=== PATIENT | male | born 1985 | race Caucasian/White ===

== ENCOUNTER 2016-07-03 13:41 | Emergency (ER) | payer SELFPAY ==
[2016-07-03 13:54] VITALS: BP 131/85
--- NOTE | 2016-07-03 14:03 | UC ---
UC General HPI - HPI Summary HPI Summary: complaint of lump on his stomach noticed it 2 daysa go small area of redness and tiny bump since then it has become more swollen thinks it was a spider bite tried to pop it yesterday but had no success painful when his pants rub against denies fever or chills, abdominal pain hasn't taken any medications for pain - History of Current Complaint Chief Complaint: UCSkin Stated Complaint: SOFT TISSUE COMPLAINT Time Seen by Provider: 07/03/16 13:47 Hx Obtained From: Patient - Allergy/Home Medications Allergies/Adverse Reactions: Allergies Allergy/AdvReac Type Severity Reaction Status Date / Time No Known Allergies Allergy Verified 12/12/14 21:29 PMH/Surg Hx/FS Hx/Imm Hx Previously Healthy: Yes Endocrine History Of: Denies: Diabetes, Thyroid Disease Cardiovascular History Of: Denies: Cardiac Disorders, Hypertension, Pacemaker/ICD, Congestive Heart Failure Respiratory History Of: Denies: COPD, Asthma GI/ History Of: Denies: Gastroesophageal Reflux, Ulcer, Renal Disease Neurological History Of: Denies: CVA, Dementia, Seizures Other History Of: Negative For: Anticoagulant Therapy - Surgical History Surgical History: Yes Surgery Procedure, Year, and Place: appendecomy 2013 - Family History Known Family History: Negative: Cardiac Disease, Hypertension, Diabetes - Social History Occupation: Employed Full-time Alcohol Use: Occasionally Substance Use Type: None Smoking Status (MU): Never Smoked Tobacco - Immunization History Most Recent Influenza Vaccination: unknown Most Recent Tetanus Shot: unknown Most Recent Pneumonia Vaccination: unknown Review of Systems Constitutional: Negative Skin: Other - abscess Eyes: Negative ENT: Negative Respiratory: Negative Cardiovascular: Negative Gastrointestinal: Negative Genitourinary: Negative Motor: Negative Neurovascular: Negative Musculoskeletal: Negative Neurological: Negative Psychological: Negative All Other Systems Reviewed And Are Negative: Yes Physical Exam Triage Information Reviewed: Yes Appearance: Well-Appearing, No Pain Distress, Well-Nourished, Obese Vital Signs: Initial Vital Signs Temp 98.4 F 07/03/16 13:48 Pulse 78 07/03/16 13:48 Resp 18 07/03/16 13:48 BP 131/85 07/03/16 13:48 Pulse Ox 100 07/03/16 13:48 Vital Signs Reviewed: Yes Eyes: Positive: Conjunctiva Clear ENT: Positive: Pharynx normal, TMs normal. Negative: Nasal congestion Neck: Positive: No Lymphadenopathy Respiratory: Positive: Lungs clear, Normal breath sounds, No respiratory distress Cardiovascular: Positive: RRR, No Murmur Abdomen Description: Positive: Nontender, Soft Bowel Sounds: Positive: Present Musculoskeletal: Positive: No Edema Psychological Exam: Normal Skin: Positive: Other - abscess RLQ approx 2x2cm approx 2cm of induration beneath , area of erythema approx 4x3 cm surrounding abscess Procedures - Incision and Drainage Site: RLQ- small amount of exudate expressd pt tolerated well Anesthesia: Lidocaine Instrument(s): Scalpel Packing: Other - sterile dressing- Course/Dx - Course Course Of Treatment: exam completed. abscess most likely caused by spider bite. I&D completed, culture sent, will give tetanus andcover for MRSA with bactrim - Differential Dx - Multi-Symptom Differential Diagnoses: Other - aabscess, cellulitis Provider Diagnoses: abscess RLQ, cellulitis RLQ Discharge - Discharge Plan Condition: Stable Disposition: HOME Prescriptions: Sulfamethox/Trimethoprim DS* [Bactrim DS 800/160 TAB*] 1 tab PO BID #14 tab Patient Education Materials: Cellulitis (ED), Abscess (ED) Referrals: Gerson Oh MD [Primary Care Provider] - Additional Instructions: Please take antibiotic as directed. Increase fluids and rest Take acetaminophen for fever or pain Please review your discharge instructions. If your symptoms do not improve please call your primary care provider or return to urgent care.ABSCESS What is an Abscess? An abscess is a collection of pus caused by an infection. It may be a simple infected hair follicle, a boil, or an infection caused by a puncture wound, an untreated wound, or an abrasion. The abscess may come to a head and rupture. Sometimes the abscess may need to be cut open and drained to remove the pus and tissue. Symptoms May Include: Skin redness over the infected area Tight, glossy, "stretched" appearance of the skin Pain or tenderness of the area The affected area may be warm or hot to touch Thin red line (along a vein) from the abscess toward the heart Fever Treatment Recommendations: Apply warm wet compresses to the infected area several times a day. If a dressing was applied, keep it clean and dry. The healthcare provider may have prescribed an antibiotic medicine. The medicine should be taken until it is completely gone, even if you are feeling better. If you stop taking the medicine early, the infection may not be completely gone, and the medication may not work the next time. You should have the abscess rechecked by your healthcare provider as instructed by the emergency department healthcare provider. If a drain was put in the abscess, keep the dressing clean and dry. You may need to change the dressing if it becomes soaked with drainage. It is very important to follow-up with your own healthcare provider as directed. The drain should be removed and the wound rechecked in 2 to 3 days or as directed. Call Your Doctor or Return Here IF: You are not improving, or the abscess looks like it is getting worse. The wound turns red and starts to swell again, or there are red streaks coming from the wound. You develop a fever that does not go down when you take fever medicine such as acetaminophen (Tylenol). The wound continues to leak pus after the drain is removed. You have any new symptoms that worry you.
[2016-07-03] MEDS ORDERED: Tetan/Diph/Pertus SYR(Tdap)* 0.5 ML SYR(BOOSTRIX) use SYR IM ONE (14:10)
[2016-07-03] MEDS ORDERED: Lidocaine 2% W/EPI 1:100,000* 20 ML MDV ONE (14:13)
== END 2016-07-03 14:54 | disposition home or self-care (01) ==
LOC: UCEAST 13:41
DX: L02.211 Cutaneous abscess of abdominal wall (principal); Z23 Encounter for immunization
CPT/HCPCS: 10060; 87070; 87077; 87186; 87205; 87640; 87641; 90715; 99212; G0463

== ENCOUNTER 2016-08-07 17:47 | Emergency (ER) | payer OTHER ==
[2016-08-07] MEDS ORDERED: Ondansetron INJ* 2 MG/ML VIAL IV ONE (20:56)
[2016-08-07] MEDS ORDERED: Morphine INJ* 4 MG/ML 1 ML CARPUJECT IV ONE (20:56)
[2016-08-07] MEDS ORDERED: Ketorolac INJ* 30 MG/ML 1 ML VIAL IM ONE (20:56)
[2016-08-07] MEDS ORDERED: NS 0.9% 1000 ML* 1,000 ML IV ONE (20:56)
[2016-08-07 21:37] LABS: Albumin 4.4 g/dL (3.2-5.2); BUN/Creatinine Ratio 18.1 (8-20); Calcium 9.4 mg/dL (8.6-10.3); EGFR Non-African American 94.9 (>60); Globulin 2.8 g/dL (2-4); Total Bilirubin 0.6 mg/dL (0.2-1.0); Total Protein 7.2 g/dL (6.4-8.9)
[2016-08-07 21:39] LABS: Troponin I 0.01 ng/mL (<0.04)
[2016-08-07 21:40] LABS: Hematocrit 47 % (42-52); Hemoglobin 15.7 g/dl (14.0-18.0); Mean Corpuscular HGB Conc 33 g/dl (31-36); Mean Corpuscular Hemoglobin 29 pg (27-31); Mean Corpuscular Volume 88 fL (80-94); Mean Platelet Volume 10 um3 (7.4-10.4); Red Blood Count 5.37 10^6/ul (4.0-5.4); Red Cell Distribution Width 14 % (10.5-15); White Blood Count 11.9 10^3/ul (3.5-10.8)
[2016-08-07] MEDS ORDERED: HYDROmorphone INJ* 1 MG/ML CARPUJECT SYRINGE IV SLOW PU ONE (21:49)
--- NOTE | 2016-08-07 21:51 | RAD ---
Indication: Left lower abdomen pain. 2 views of the chest demonstrates no mediastinal shift. Heart is of normal size and configuration. Lung brown are clear. When compared to previous exam of June 28, 2014 no significant change is noted. IMPRESSION: No active cardiopulmonary disease is noted.
[2016-08-07] MEDS ORDERED: HYDROmorphone INJ* 1 MG/ML CARPUJECT SYRINGE ONE (21:52)
[2016-08-07 22:10] LABS: Urine Bilirubin Negative (Negative); Urine Glucose Negative (Negative); Urine Nitrite Negative (Negative)
--- NOTE | 2016-08-07 22:26 | RAD ---
Indication: Left flank pain. CT of the abdomen and pelvis was performed without oral or IV contrast administration. Coronal and and sagittal reconstructed images were obtained. The lung bases demonstrate no pleural fluid, nodules or masses. Heart is of normal size without evidence of pericardial effusion. Liver is normal in size. No focal lesions or intrahepatic duct dilatation is noted. The spleen is normal in size. The pancreas demonstrates no mass effect or ductal dilatation. The common duct is not dilated. No adrenal masses are noted. The kidneys demonstrate symmetric nephrograms without hydronephrosis. No retroperitoneal lymphadenopathy is noted. CT of the pelvis demonstrates no retroperitoneal or pelvic lymphadenopathy. Urinary bladder is distended. No hernias are noted. The patient apparently has had an appendectomy with surgical clips at the base of the cecum. No pelvic adenopathy is noted. The prostate is otherwise unremarkable. IMPRESSION: No evidence of obstructive uropathy is noted.
[2016-08-07 23:55] VITALS: BP 121/74
--- NOTE | 2016-08-08 03:24 | ED ---
Wilda Vergara Claudia, scribed for Jose A Franz on 08/07/16 at 2101 . GI/ HPI - HPI Summary HPI Summary: 30 year old male presents to the ED with left flank pain. Pt notes sudden onset earlier this pm when he was playing football with friends. 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 He denies any fevers. Pt notes pain as constant 10/10.Pt denies any radiating pain or PMHx of kidney stones. - History of Current Complaint Chief Complaint: EDAbdPain Time Seen by Provider: 08/07/16 20:36 Stated Complaint: LEFT SIDE ABD PAIN Hx Obtained From: Patient Onset/Duration: Started Hours Ago Timing: Constant Pain Intensity: 10 Location of Pain: Flank - left Pain Characteristics: Sharp Associated Signs and Symptoms: Positive: Back Pain, Flank Pain - Allergy/Home Medications Allergies/Adverse Reactions: Allergies Allergy/AdvReac Type Severity Reaction Status Date / Time No Known Allergies Allergy Verified 12/12/14 21:29 PMH/Surg Hx/FS Hx/Imm Hx Previously Healthy: Yes Endocrine/Hematology History: Denies: Hx Anticoagulant Therapy, Hx Diabetes, Hx Thyroid Disease Cardiovascular History: Denies: Hx Congestive Heart Failure, Hx Hypertension, Hx Pacemaker/ICD Respiratory History: Denies: Hx Asthma, Hx Chronic Obstructive Pulmonary Disease (COPD) GI History: Denies: Hx Ulcer, Other GI Disorders History: Denies: Hx Renal Disease Sensory History: Reports: Hx Contacts or Glasses Opthamlomology History: Reports: Hx Contacts or Glasses Neurological History: Denies: Hx Dementia, Hx Seizures Psychiatric History: Denies: Hx Eating Disorder, Hx of Violent Episodes Against Others, Hx Substance Abuse - Surgical History Surgery Procedure, Year, and Place: appendecomy 2013 - Immunization History Date of Tetanus Vaccine: Unknown Infectious Disease History: No Infectious Disease History: Denies: Hx Hepatitis, Hx Human Immunodeficiency Virus (HIV), History Other Infectious Disease, Traveled Outside the [place] in Last 30 Days - Family History Known Family History: Negative: Cardiac Disease, Hypertension, Diabetes - Social History Lives: With Family Alcohol Use: Occasionally Substance Use Type: Reports: None Smoking Status (MU): Never Smoked Tobacco Review of Systems Negative: Fever Eyes: Negative ENT: Negative Cardiovascular: Negative Respiratory: Negative Gastrointestinal: Negative Positive: flank pain Musculoskeletal: Negative Skin: Negative Neurological: Negative Psychological: Normal All Other Systems Reviewed And Are Negative: Yes Physical Exam Triage Information Reviewed: Yes Vital Signs On Initial Exam: Initial Vitals Temp Pulse Resp BP Pulse Ox 98.0 F 72 20 152/78 100 08/07/16 17:52 08/07/16 17:52 08/07/16 17:52 08/07/16 17:52 08/07/16 17:52 Vital Signs Reviewed: Yes Appearance: Positive: Well-Appearing, No Pain Distress Skin: Positive: Warm, Skin Color Reflects Adequate Perfusion, Dry Head/Face: Positive: Normal Head/Face Inspection Eyes: Positive: EOMI, CHERYL ENT: Positive: Normal ENT inspection Neck: Positive: Supple, Nontender Respiratory/Lung Sounds: Positive: Clear to Auscultation, Breath Sounds Present Cardiovascular: Positive: RRR, Pulses are Symmetrical in both Upper and Lower Extremities Abdomen Description: Positive: Soft, Other: - left flank pain Musculoskeletal: Positive: Normal, Strength/ROM Intact Neurological: Positive: Normal, Sensory/Motor Intact, Alert, Oriented to Person Place, Time - Aldo Coma Scale Coma Scale Total: 15 Diagnostics - Vital Signs Vital Signs Temp Pulse Resp BP Pulse Ox 08/07/16 18:49 98.8 F 66 16 133/77 99 08/07/16 17:52 98.0 F 72 20 152/78 100 - Laboratory Result Diagrams: 08/07/16 21:10 08/07/16 21:10 Lab Statement: Any lab studies that have been ordered have been reviewed, and results considered in the medical decision making process. - Radiology CXR Xray Interpretation: No Acute Changes - NO ACTIVE CARDIOPULMONARY DIEASE IS NOTED Radiology Interpretation Completed By: Radiologist - CT ABD/PELVIS CT CT Interpretation: No Acute Changes - NO EVIDENCE OF OBSTRUCTIVE UROPATHY IS NOTED. CT Interpretation Completed By: Radiologist Re-Evaluation - Re-Evaluation 1 Re-Evaluation Time: 22:57 Comment: Imaging results are discussed with pt whom is agreeable with the plan to be d/c home GIGU Course/Dx - Course Assessment/Plan: AFTER CXR AND CT ABD/PELVIS PT IS AGREEABLE WITH THE PLAN TO BE D/C HOME WITH F/O WITH PCP. - Diagnoses Provider Diagnoses: Flank pain, Musculoskeletal pain Discharge - Discharge Plan Condition: Stable Disposition: HOME Patient Education Materials: Musculoskeletal Pain (ED), Flank Pain (ED) Referrals: Gerson Oh MD [Primary Care Provider] - 3 Days The documentation as recorded by the Wilda pavon Claudia accurately reflects the service I personally performed and the decisions made by , Jose A Franz.
== END 2016-08-07 23:53 | disposition home or self-care (01) ==
LOC: ED 17:47
DX: R10.84 Generalized abdominal pain (principal); M54.9 Dorsalgia, unspecified; M79.1 Myalgia
CPT/HCPCS: 36415; 71020; 74176; 80053; 81003; 83690; 84484; 85025; 96372; 96374; 96375; 99284; J1170; J1885; J2270; J2405

== ENCOUNTER 2017-02-16 08:53 | Emergency (ER) | payer SELFPAY ==
--- NOTE | 2017-02-16 10:18 | RAD ---
INDICATION: Foreign body fragments removed from under the nail right middle finger assess for residual. TECHNIQUE: 3 views of the right middle finger were obtained. FINDINGS: There is soft tissue swelling present. There is a small 1 mm metallic foreign body which projects dorsal to the distal phalanx in the region of the nailbed. No fracture is seen. Joint spaces appear maintained. IMPRESSION: SMALL METALLIC FOREIGN BODY NOTED.
[2017-02-16 11:21] VITALS: BP 138/86
--- NOTE | 2017-03-21 17:27 | UC ---
Skin Complaint HPI - HPI Summary HPI Summary: pt p/w c/o fb under the nail of his rt middle finger. 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 - History of Current Complaint Chief Complaint: UCForeignBody Time Seen by Provider: 02/16/17 09:14 Stated Complaint: FINGER INJURY Hx Obtained From: Patient Onset/Duration: Sudden Onset, Lasting Hours, Still Present Timing: Constant Onset Severity: Moderate Current Severity: Moderate Pain Intensity: 3 Pain Scale Used: 0-10 Numeric Location: Discrete, Hand (Right) Aggravating Factor(s): Touch Alleviating Factor(s): Nothing Associated Signs & Symptoms: Positive: Negative Related History: Foreign Body - Allergy/Home Medications Allergies/Adverse Reactions: Allergies Allergy/AdvReac Type Severity Reaction Status Date / Time No Known Allergies Allergy Verified 02/16/17 09:01 Review of Systems Constitutional: Negative Skin: Other - see hpi ENT: Negative Respiratory: Negative Cardiovascular: Negative Gastrointestinal: Negative Musculoskeletal: Negative Is Patient Immunocompromised?: No All Other Systems Reviewed And Are Negative: Yes PMH/Surg Hx/FS Hx/Imm Hx Previously Healthy: Yes Other History Of: Negative For: Anticoagulant Therapy - Surgical History Surgical History: Yes Surgery Procedure, Year, and Place: appendecomy 2013 - Family History Known Family History: Negative: Cardiac Disease, Hypertension, Diabetes - Social History Occupation: Employed Full-time Alcohol Use: Occasionally Substance Use Type: None Smoking Status (MU): Never Smoked Tobacco - Immunization History Most Recent Influenza Vaccination: unknown Most Recent Tetanus Shot: unknown Most Recent Pneumonia Vaccination: unknown Physical Exam Triage Information Reviewed: Yes Appearance: Well-Appearing, No Pain Distress, Well-Nourished Vital Signs: Initial Vital Signs Temp 98 F 02/16/17 09:01 Pulse 67 02/16/17 09:01 Resp 16 02/16/17 09:01 BP 122/71 02/16/17 09:01 Pulse Ox 99 02/16/17 09:01 Vital Signs Reviewed: Yes Eyes: Positive: Conjunctiva Clear. Negative: Discharge ENT: Positive: Hearing grossly normal, Muffled/hoarse voice Respiratory: Positive: Lungs clear, Normal breath sounds, No respiratory distress Cardiovascular: Positive: RRR, No Murmur Musculoskeletal Exam: Normal Neurological: Positive: Alert, Muscle Tone Normal Psychological: Positive: Age Appropriate Behavior Skin: Positive: Other - small~2,5x1ml, flat metallic object removed from under nail with forceps. no complications. post removal exam still elicited tenderness. so xray ordered Course/Dx - Course Course Of Treatment: abx pplx given as pt sustained fb from health care facility. htn noted - likely d/t pt condition - Differential Diagnoses - Skin Complaint Differential Diagnoses: Foreign Body - Diagnoses Provider Diagnoses: soft tissue fb - partially retained, elevated bp without dx of htn Discharge - Discharge Plan Condition: Stable Disposition: HOME Prescriptions: Amoxicillin/Clavulanate TAB* [Augmentin TAB 875*] 875 mg PO BID #20 tab Patient Education Materials: Soft Tissue Foreign Body (ED), Warm Compress or Soak (ED) Referrals: Greg Mehta MD [Medical Doctor] - (FOLLOW UP IN 2-5 DAYS) Gerson Oh MD [Primary Care Provider] - As Soon As Possible (REMEMBER TO ASK YOUR PC ABOUT YOUR LAST TETNUS VACCINE. IF YOU HAVE NOT HAD ONE IN THE LAST 5 YEARS, YOU SHOULD GET ONE ON FRIDAY.) Additional Instructions: WE WERE ABLE TO REMOVED MOST OF THE METALLIC MATERIAL FROM UNDER UNDER YOU FINGER NAIL BUT, UNFORTUNATELY, NOT ALL OF IT. TAKE ANTIBIOTICS TO PROTECT AGAINST INFECTION. REMEMBER YOUR RISK OF INFECTION IS HIGHER SINCE YOU GOT THE FOREIGN BODY FROM A SKILLED NURSING. CONTINUE WARMS SOAKS. IF OBJECT DOES NOT COME OUT FROM UNDER YOUR NAIL, WE HAVE GIVEN YOU A REFERRAL TO A SURGEON. AUGMENTIN: Augmentin is a mixture of amoxicillin and clavulanate. Amoxicillin is a member of the penicillin family. It covers the germs likely to cause ear, bronchial, and urinary infections better than plain penicillin. The addition of clavulanate allows it to cover staph infections of the skin, as well as resistant cases of ear and sinus infections. Your physician has chosen Augmentin for you because of the special nature of your situation. Augmentin is best taken with meals. Nausea after taking the medication is rare, but can occur. Diarrhea can occur, particularly in small children. Vaginal yeast infections, and oral thrush in infants are also common. Contact your physician if these problems occur. Allergy to penicillins is common. If you have had an allergic reaction to any drug of the penicillin family, you should never take any other penicillin. Notify your doctor at once if you develop hives, shortness of breath, swelling, or faintness. ANYTIME YOU TAKE AN ANTIBIOTIC, IT IS IMPORTANT TO REPLENISH THE BODY'S SUPPLY OF "GOOD BACTERIA." YOU CAN GET GOOD BACTERIA FROM HIGH QUALITY CULTURED FOODS SUCH LOCAL YOGURT, SOUR KRAUT, RAGHU MARIVEL, NATURALLY FERMENTED PICKLES AND PROBIOTIC DRINKS. YOU CAN ALSO GET GOOD BACTERIA FROM A PROBIOTIC SUPPLEMENT.
== END 2017-02-16 11:13 | disposition short-term general hospital (02) ==
LOC: UCEAST 08:53
DX: S60.452A Superficial foreign body of right middle finger, initial encounter (principal); W45.8XXA Other foreign body or object entering through skin, initial encounter; Y93.E9 Activity, other interior property and clothing maintenance; Y92.129 Unspecified place in nursing home as the place of occurrence of the external cause; Y99.0 Civilian activity done for income or pay; R03.0 Elevated blood-pressure reading, without diagnosis of hypertension
CPT/HCPCS: 73140; 99211; G0463

== ENCOUNTER 2017-07-07 14:16 | Emergency (ER) | payer BC ==
[2017-07-07 14:29] VITALS: BP 132/72
[2017-07-07] MEDS ORDERED: Fluorescein Sodium TOPICAL* 1 MG TEST OPHTHALMIC ONE (14:36)
[2017-07-07] MEDS ORDERED: BSS OPTH.SOL* BTL OPHTHALMIC ONE (14:36)
--- NOTE | 2017-07-07 14:36 | UC ---
Eye Complaint HPI - HPI Summary HPI Summary: left eye began getting itchy and red on Friday---may have gotten soap in it on Friday, very red and itchy Friday night--Is better today but still is itchy erythema has decreased - History of Current Complaint Chief Complaint: UCEye Stated Complaint: EYE COMPLAINT Time Seen by Provider: 07/07/17 14:35 Hx Obtained From: Patient Onset/Duration: Sudden Onset, Lasting Days - 4, Still Present Timing: Constant Severity Initially: Moderate Severity Currently: Mild Location of Injury: Conjunctiva Aggravating Factor(s): Nothing Alleviating Factor(s): Nothing Associated Signs And Symptoms: Positive: Drainage (Clear) - Allergies/Home Medications Allergies/Adverse Reactions: Allergies Allergy/AdvReac Type Severity Reaction Status Date / Time No Known Allergies Allergy Verified 02/16/17 09:01 PMH/Surg Hx/FS Hx/Imm Hx Previously Healthy: Yes Other History Of: Negative For: Anticoagulant Therapy - Surgical History Surgical History: Yes Surgery Procedure, Year, and Place: appendecomy 2012 - Family History Known Family History: Negative: Cardiac Disease, Hypertension, Diabetes - Social History Occupation: Employed Full-time - washing [employer] Lives: With Family Alcohol Use: Occasionally Substance Use Type: None Smoking Status (MU): Never Smoked Tobacco - Immunization History Most Recent Influenza Vaccination: unknown Most Recent Tetanus Shot: unknown Most Recent Pneumonia Vaccination: unknown Review of Systems Constitutional: Negative Skin: Negative Eyes: Eye Redness - os ENT: Negative Respiratory: Negative Cardiovascular: Negative Gastrointestinal: Negative Genitourinary: Negative Motor: Negative Neurovascular: Negative Musculoskeletal: Negative Neurological: Negative Psychological: Negative Is Patient Immunocompromised?: No All Other Systems Reviewed And Are Negative: Yes Physical Exam Triage Information Reviewed: Yes Appearance: Well-Appearing, No Pain Distress, Well-Nourished Vital Signs: Initial Vital Signs Temp 97.6 F 07/07/17 14:22 Pulse 77 07/07/17 14:22 Resp 20 07/07/17 14:22 BP 132/72 07/07/17 14:22 Pulse Ox 96 07/07/17 14:22 Vital Signs Reviewed: Yes Eye Exam: Normal Eyes: Positive: Conjunctiva Inflamed - os, Discharge - clear os, Other: - perrla , eomi ENT Exam: Normal ENT: Positive: Normal ENT inspection, Hearing grossly normal. Negative: Nasal congestion, Nasal drainage, Trismus, Muffled voice, Hoarse voice, Sinus tenderness Dental Exam: Normal Neck exam: Normal Neck: Positive: Supple, Nontender Respiratory Exam: Normal Respiratory: Positive: Chest non-tender, No respiratory distress, No accessory muscle use Cardiovascular Exam: Normal Cardiovascular: Positive: RRR, Pulses Normal, Brisk Capillary Refill Musculoskeletal Exam: Normal Musculoskeletal: Positive: Strength Intact, ROM Intact, No Edema Neurological Exam: Normal Neurological: Positive: Alert, Muscle Tone Normal Psychological Exam: Normal Skin Exam: Normal Re-Evaluation - Re-Evaluation First Eval Change: Unchanged - eye stain and no dye up take, Eye Complaint Course/Dx - Course Course Of Treatment: cool compress poly-trim eye drops, follow with Dr. Amaya - Differential Dx/Diagnosis Provider Diagnoses: OS Conjuctivitis Discharge - Discharge Plan Condition: Stable Disposition: HOME Prescriptions: Polymyx/Trimethoprim OPTH* [Polytrim OPHTH*] 1 drop LEFT EYE Q3H 7 Days #1 btl Patient Education Materials: How to Use Eye Drops (ED), Conjunctivitis (ED) Referrals: Yuan Amaya MD [Medical Doctor] - 2 Days
== END 2017-07-07 15:04 | disposition home or self-care (01) ==
LOC: UCEAST 14:16
DX: H10.9 Unspecified conjunctivitis (principal)
CPT/HCPCS: 99212; A9270-GY; G0463

== ENCOUNTER 2017-10-15 10:31 | Emergency (ER) | payer BC ==
[2017-10-15] MEDS ORDERED: Famotidine TAB* 20 MG PO ONE (11:28)
[2017-10-15] MEDS ORDERED: Lidocaine 2% VISCOUS* 15 ML UDC PO ONE (11:28)
[2017-10-15] MEDS ORDERED: Al Hydrox/Mg Hydrox/Simet LIQ* 30 ML UDC PO ONE (11:28)
[2017-10-15 11:40] LABS: ABS Basophils 0 10^3/ul (0-0.2); ABS Eosinophils 0.2 10^3/ul (0-0.6); ABS Lymphocytes 1.9 10^3/ul (1.0-4.8); ABS Monocytes 0.8 10^3/ul (0-0.8); ABS Neutrophils 6.5 10^3/ul (1.5-7.7); ABS Nucleated RBC 0 10^3/ul; Eosinophil % 1.9 % (0-6); Hematocrit 44 % (42-52); Hemoglobin 14.9 g/dl (14.0-18.0); Lymphocyte % 19.7 % (25-47); Mean Corpuscular HGB Conc 34 g/dl (31-36); Mean Corpuscular Hemoglobin 30 pg (27-31); Mean Corpuscular Volume 89 fL (80-94); Mean Platelet Volume 9.2 um3 (7.4-10.4); Nucleated Red Blood Cells % 0.1; Platelet Count 191 10^3/ul (150-450); Red Blood Count 4.98 10^6/ul (4.0-5.4); Red Cell Distribution Width 13 % (10.5-15); White Blood Count 9.4 10^3/ul (3.5-10.8)
--- NOTE | 2017-10-15 11:54 | ED ---
Abdominal Pain/Male - HPI Summary HPI Summary: Patient is a 31-year-old male who presents emergency department for left upper quadrant abdominal pain that started this morning. Pain is constant and worse with movement. Patient is unable to describe quality of pain. He rates it 6 out of 10. Denies associated symptoms of fever, chills, upper respiratory symptoms, cough, vomiting, diarrhea, constipation, urinary symptoms. He denies past medical history. Denies daily alcohol use. Denies NSAID use. Symptoms are moderate in severity. - History of Current Complaint Chief Complaint: EDAbdPain Stated Complaint: FLANK PAIN Time Seen by Provider: 10/15/17 11:36 Hx Obtained From: Patient Pain Intensity: 6 - Allergies/Home Medications Allergies/Adverse Reactions: Allergies Allergy/AdvReac Type Severity Reaction Status Date / Time No Known Allergies Allergy Verified 02/16/17 09:01 PMH/Surg Hx/FS Hx/Imm Hx Previously Healthy: Yes Endocrine/Hematology History: Denies: Hx Anticoagulant Therapy, Hx Diabetes, Hx Thyroid Disease Cardiovascular History: Denies: Hx Congestive Heart Failure, Hx Hypertension, Hx Pacemaker/ICD Respiratory History: Denies: Hx Asthma, Hx Chronic Obstructive Pulmonary Disease (COPD) GI History: Denies: Hx Ulcer, Other GI Disorders History: Denies: Hx Renal Disease Sensory History: Reports: Hx Contacts or Glasses Opthamlomology History: Reports: Hx Contacts or Glasses Neurological History: Denies: Hx Dementia, Hx Seizures Psychiatric History: Denies: Hx Eating Disorder, Hx of Violent Episodes Against Others, Hx Substance Abuse - Surgical History Surgery Procedure, Year, and Place: appendecomy 2013 - Immunization History Date of Tetanus Vaccine: Unknown Infectious Disease History: No Infectious Disease History: Denies: Hx Clostridium Difficile, Hx Hepatitis, Hx Human Immunodeficiency Virus (HIV), Hx of Known/Suspected MRSA, Hx Shingles, Hx Tuberculosis, Hx Known/ Suspected VRE, Hx Known/Suspected VRSA, History Other Infectious Disease, Traveled Outside the [place] in Last 30 Days - Family History Known Family History: Negative: Cardiac Disease, Hypertension, Diabetes - Social History Occupation: Employed Full-time Lives: With Family Alcohol Use: Occasionally Substance Use Type: Reports: None Smoking Status (MU): Never Smoked Tobacco Review of Systems Constitutional: Negative Negative: Fever, Chills Eyes: Negative ENT: Negative Cardiovascular: Negative Negative: Palpitations, Chest Pain Respiratory: Negative Negative: Shortness Of Breath, Cough Positive: Abdominal Pain. Negative: Vomiting, Diarrhea, Nausea Genitourinary: Negative Musculoskeletal: Negative Neurological: Negative All Other Systems Reviewed And Are Negative: Yes Physical Exam Triage Information Reviewed: Yes Vital Signs On Initial Exam: Initial Vitals Temp Pulse Resp BP Pulse Ox 99.3 F 88 16 136/80 99 10/15/17 10:34 10/15/17 10:34 10/15/17 10:34 10/15/17 10:34 10/15/17 10:34 Vital Signs Reviewed: Yes Appearance: Positive: Well-Appearing - Patient lying on bed in no acute distress. Looking at cell phone when I walked in the room. Skin: Positive: Warm, Dry Head/Face: Positive: Normal Head/Face Inspection Eyes: Positive: Normal, CHERYL Neck: Positive: Supple Respiratory/Lung Sounds: Positive: Clear to Auscultation, Breath Sounds Present Cardiovascular: Positive: Normal, RRR Abdomen Description: Positive: Other: - Obese. Abdomen is soft throughout with pain on palpation to the left upper quadrant. No rebound tenderness or guarding. Negative pacheco sign. No left CVA tenderness. Musculoskeletal: Positive: Normal Neurological: Positive: Normal, CN Intact II-III Psychiatric: Positive: Normal Diagnostics - Vital Signs Vital Signs Temp Pulse Resp BP Pulse Ox 10/15/17 10:34 99.3 F 88 16 136/80 99 - Laboratory Lab Results: Lab Results 10/15/17 Range/Units 11:32 WBC 9.4 (3.5-10.8) 10^3/ul RBC 4.98 (4.0-5.4) 10^6/ul Hgb 14.9 (14.0-18.0) g/dl Hct 44 (42-52) % MCV 89 (80-94) fL MCH 30 (27-31) pg MCHC 34 (31-36) g/dl RDW 13 (10.5-15) % Plt Count 191 (150-450) 10^3/ul MPV 9.2 (7.4-10.4) um3 Neut % (Auto) 68.9 (38-83) % Lymph % (Auto) 19.7 L (25-47) % Craig % (Auto) 9.0 H (0-7) % Eos % (Auto) 1.9 (0-6) % Baso % (Auto) 0.5 (0-2) % Absolute Neuts (auto) 6.5 (1.5-7.7) 10^3/ul Absolute Lymphs (auto) 1.9 (1.0-4.8) 10^3/ul Absolute Monos (auto) 0.8 (0-0.8) 10^3/ul Absolute Eos (auto) 0.2 (0-0.6) 10^3/ul Absolute Basos (auto) 0 (0-0.2) 10^3/ul Absolute Nucleated RBC 0 10^3/ul Nucleated RBC % 0.1 Result Diagrams: 10/15/17 11:32 10/15/17 11:32 Lab Statement: Any lab studies that have been ordered have been reviewed, and results considered in the medical decision making process. Abdominal Pain Fem Course/Dx - Course Course Of Treatment: Patient presenting to the ER for left upper quadrant abdominal pain. He is afebrile with stable vital signs. Will check basic labs. Suspect gastritis. Patient was given GI cocktail. Labs are unremarkable. Patient's pain has improved after medication. Results were discussed. Suspect gastritis. Famotidine prescribed. Advised patient to avoid foods high in acid, caffeine, fat, spice, alcohol, NSAIDs. Close follow- up with PCP and return to the ER for worsening symptoms. - Diagnoses Differential Diagnosis/HQI/PQRI: Gall Bladder Disease, Pancreatitis, Peptic Ulcer Disease Provider Diagnoses: Gastritis Discharge - Sign-Out/Discharge Documenting (check all that apply): Discharge/Admit/Transfer - Discharge Plan Condition: Good Disposition: HOME Prescriptions: Famotidine TAB* [Pepcid 20 MG TAB*] 40 mg PO DAILY #14 tab Patient Education Materials: Gastritis (ED) Referrals: Gerson Oh MD [Primary Care Provider] - Additional Instructions: Schedule a follow up appointment with your PCP Medication as directed Avoid foods high in spice, caffeine, alcohol, acid, fat Return to ER if symptoms change or worsen - Billing Disposition and Condition Condition: GOOD Disposition: HOME
[2017-10-15 13:48] VITALS: BP 118/84
== END 2017-10-15 13:46 | disposition home or self-care (01) ==
LOC: ED 10:31
DX: K29.70 Gastritis, unspecified, without bleeding (principal)
CPT/HCPCS: 36415; 80053; 83605; 83690; 85025; 86140; 99282; A9270-GY

== ENCOUNTER 2017-11-20 08:52 | Emergency (ER) | payer BC ==
[2017-11-20] MEDS ORDERED: NS 0.9% 1000 ML* 1,000 ML IV ONE (08:57)
[2017-11-20] MEDS ORDERED: Ketorolac INJ* 30 MG/ML 1 ML VIAL IV ONE (08:57)
[2017-11-20] MEDS ORDERED: Metoclopramide IV* 5 MG/ML 2 ML VIAL IV ONE (08:58)
[2017-11-20] MEDS ORDERED: diPHENhydraMINE IV* 50 MG/ML 1 ml VIAL (BENADRYL) IV ONE (08:58)
[2017-11-20 09:14] LABS: ABS Basophils 0 10^3/ul (0-0.2); ABS Eosinophils 0.2 10^3/ul (0-0.6); ABS Lymphocytes 1.2 10^3/ul (1.0-4.8); ABS Monocytes 0.8 10^3/ul (0-0.8); ABS Neutrophils 10.3 10^3/ul (1.5-7.7); ABS Nucleated RBC 0 10^3/ul; Eosinophil % 1.5 % (0-6); Hematocrit 47 % (42-52); Hemoglobin 15.9 g/dl (14.0-18.0); Lymphocyte % 9.9 % (25-47); Mean Corpuscular HGB Conc 34 g/dl (31-36); Mean Corpuscular Hemoglobin 30 pg (27-31); Mean Corpuscular Volume 88 fL (80-94); Mean Platelet Volume 9.3 um3 (7.4-10.4); Nucleated Red Blood Cells % 0.1; Platelet Count 208 10^3/ul (150-450); Red Blood Count 5.32 10^6/ul (4.0-5.4); Red Cell Distribution Width 13 % (10.5-15); White Blood Count 12.5 10^3/ul (3.5-10.8)
[2017-11-20 09:33] LABS: EGFR Non-African American 111.1 (>60)
[2017-11-20] MEDS ORDERED: Iohexol 300* (CONTRAST) 10 ML SDV IV ONE (09:40)
--- NOTE | 2017-11-20 10:34 | RAD ---
INDICATION: Left lower quadrant abdominal pain. COMPARISON: Comparison is made with a prior CT of the abdomen and pelvis from August 07, 2016. TECHNIQUE: A CT scan of the abdomen and pelvis was performed with intravenous and without oral contrast following intravenous injection of 139 ml of Omnipaque 300 nonionic contrast. Contiguous axial sections were obtained from the lung bases through the symphysis pubis. Images were reconstructed in the coronal and sagittal planes. FINDINGS: The lung bases are clear. No pleural effusion is present. The liver and spleen are within normal limits in size without significant focal abnormality. No calcified gallstones are seen. The pancreas appears to be within normal limits in size. The kidneys and adrenal glands are normal in size. No hydronephrosis is seen. No significant focal renal abnormality is seen. The aorta is normal in caliber and demonstrates homogeneous contrast opacification. No significant enlarged retroperitoneal lymph nodes are seen. The stomach, small and large bowel appear nondistended. The patient is status post appendectomy. There are scattered diverticuli within the sigmoid colon. There is no evidence for diverticulitis or colitis. No free intraperitoneal air or fluid is seen. No significant focal osseous abnormality is seen. IMPRESSION: 1. NO EVIDENCE FOR ACUTE FINDING OR CAUSE FOR THE PATIENT'S ABDOMINAL PAIN IS SEEN. 2. STATUS POST APPENDECTOMY.
[2017-11-20] MEDS ORDERED: Sucralfate TAB* 1 GM PO ONE (10:38)
[2017-11-20] MEDS ORDERED: Famotidine TAB* 20 MG PO ONE (10:38)
[2017-11-20 10:56] LABS: Urine Appearance Clear; Urine Blood Negative (Negative); Urine Color Yellow; Urine Ketones Negative (Negative); Urine Protein Negative (Negative); Urine Specific Gravity 1.016 (1.010-1.030); Urine Urobilinogen Negative (Negative)
[2017-11-20 11:15] VITALS: BP 153/90
--- NOTE | 2017-11-20 14:41 | ED ---
Cliff Vergara Stephanie, scribed for Rajinder Almazan MD on 11/20/17 at 0904 . Abdominal Pain/Male - HPI Summary HPI Summary: The pt is a 32 y/o M BIBA to the ED with c/o abd pain that awoke the pt at 01: 30 today. The pain is located in the LLQ and LUQ. Symptoms include N/V (at 04:30 ), weakness, lightheadedness and increased BM. He denies diarrhea, dysuria, hematuria, CP, fever, chills, blood in stool and diaphoresis. His abd pain is aggravated by deep breaths. - History of Current Complaint Chief Complaint: EDAbdPain Stated Complaint: ABD PAIN Time Seen by Provider: 11/20/17 08:57 Hx Obtained From: Patient Onset/Duration: Sudden Onset, Lasting Hours - 7, Still Present Timing: Constant Severity Currently: Moderate Pain Intensity: 8 Pain Scale Used: 0-10 Numeric Location: Discrete At: LUQ, Discrete At: LLQ Radiates: No Aggravating Factor(s): Deep Breaths Alleviating Factor(s): Nothing Associated Signs And Symptoms: Positive: Nausea, Vomiting, Other - increased BM , lightheadedness, weakness. Negative: Fever, Chest Pain, Blood in Stool, Urinary Symptoms, Diarrhea - Allergies/Home Medications Allergies/Adverse Reactions: Allergies Allergy/AdvReac Type Severity Reaction Status Date / Time No Known Allergies Allergy Verified 11/20/17 08:55 PMH/Surg Hx/FS Hx/Imm Hx Endocrine/Hematology History: Denies: Hx Anticoagulant Therapy, Hx Diabetes, Hx Thyroid Disease Cardiovascular History: Denies: Hx Congestive Heart Failure, Hx Hypertension, Hx Pacemaker/ICD Respiratory History: Denies: Hx Asthma, Hx Chronic Obstructive Pulmonary Disease (COPD) GI History: Denies: Hx Ulcer, Other GI Disorders History: Denies: Hx Renal Disease Sensory History: Reports: Hx Contacts or Glasses Opthamlomology History: Reports: Hx Contacts or Glasses Neurological History: Denies: Hx Dementia, Hx Seizures Psychiatric History: Denies: Hx Eating Disorder, Hx of Violent Episodes Against Others, Hx Substance Abuse - Surgical History Surgery Procedure, Year, and Place: appendecomy 2013 - Immunization History Date of Tetanus Vaccine: Unknown Infectious Disease History: No Infectious Disease History: Denies: Hx Clostridium Difficile, Hx Hepatitis, Hx Human Immunodeficiency Virus (HIV), Hx of Known/Suspected MRSA, Hx Shingles, Hx Tuberculosis, Hx Known/ Suspected VRE, Hx Known/Suspected VRSA, History Other Infectious Disease, Traveled Outside the [place] in Last 30 Days - Family History Known Family History: Negative: Cardiac Disease, Hypertension, Diabetes - Social History Occupation: Employed Part-time Lives: Alone Alcohol Use: Occasionally Hx Substance Use: No Substance Use Type: Reports: None Hx Tobacco Use: No Smoking Status (MU): Never Smoked Tobacco Have You Smoked in the Last Year: No Review of Systems Negative: Fever, Chills, Skin Diaphoresis Negative: Chest Pain Gastrointestinal: Negative - blood in stool, Other - increased BM Positive: Abdominal Pain, Vomiting, Nausea. Negative: Diarrhea Negative: dysuria, hematuria Neurological: Other - lightheadedness Positive: Weakness All Other Systems Reviewed And Are Negative: Yes Physical Exam - Summary Physical Exam Summary: Appearance: Well appearing, no pain distress Skin: warm, dry, reflects adequate perfusion Head/face: normal Eyes: EOMI, CHERYL ENT: normal Neck: supple, non-tender Respiratory: CTA, breath sounds present Cardiovascular: RRR, pulses symmetrical Abdomen: guarding and tenderness diffusely over L abd, soft Bowel Sounds: present Musculoskeletal: normal, strength/ROM intact Neuro: normal, sensory motor intact, A&Ox3 Triage Information Reviewed: Yes Vital Signs On Initial Exam: Initial Vitals Temp Pulse Resp BP Pulse Ox 98.8 F 62 16 155/99 100 11/20/17 08:53 11/20/17 08:53 11/20/17 08:53 11/20/17 08:53 11/20/17 08:53 Vital Signs Reviewed: Yes Diagnostics - Vital Signs Vital Signs Temp Pulse Resp BP Pulse Ox 11/20/17 08:53 98.8 F 62 16 155/99 100 - Laboratory Lab Results: Lab Results 11/20/17 11/20/17 11/20/17 Range/Units 09:04 09:04 09:04 WBC 12.5 H (3.5-10.8) 10^3/ul RBC 5.32 (4.0-5.4) 10^6/ul Hgb 15.9 (14.0-18.0) g/dl Hct 47 (42-52) % MCV 88 (80-94) fL MCH 30 (27-31) pg MCHC 34 (31-36) g/dl RDW 13 (10.5-15) % Plt Count 208 (150-450) 10^3/ul MPV 9.3 (7.4-10.4) um3 Neut % (Auto) 81.8 (38-83) % Lymph % (Auto) 9.9 L (25-47) % Hale % (Auto) 6.4 (0-7) % Eos % (Auto) 1.5 (0-6) % Baso % (Auto) 0.4 (0-2) % Absolute Neuts (auto) 10.3 H (1.5-7.7) 10^3/ul Absolute Lymphs (auto) 1.2 (1.0-4.8) 10^3/ul Absolute Monos (auto) 0.8 (0-0.8) 10^3/ul Absolute Eos (auto) 0.2 (0-0.6) 10^3/ul Absolute Basos (auto) 0 (0-0.2) 10^3/ul Absolute Nucleated RBC 0 10^3/ul Nucleated RBC % 0.1 Sodium 136 L (139-145) mmol/L Potassium 4.2 (3.5-5.0) mmol/L Chloride 102 (101-111) mmol/L Carbon Dioxide 26 (22-32) mmol/L Anion Gap 8 (2-11) mmol/L BUN 9 (6-24) mg/dL Creatinine 0.81 (0.67-1.17) mg/dL Est GFR ( Amer) 142.9 (>60) Est GFR (Non-Af Amer) 111.1 (>60) BUN/Creatinine Ratio 11.1 (8-20) Glucose 123 H (70-100) mg/dL Lactic Acid 1.5 (0.5-2.0) mmol/L Calcium 9.2 (8.6-10.3) mg/dL Total Bilirubin 0.40 (0.2-1.0) mg/dL AST 18 (13-39) U/L ALT 16 (7-52) U/L Alkaline Phosphatase 49 (34-104) U/L C-Reactive Protein 1.65 (< 5.00) mg/L Total Protein 7.0 (6.4-8.9) g/dL Albumin 4.3 (3.2-5.2) g/dL Globulin 2.7 (2-4) g/dL Albumin/Globulin Ratio 1.6 (1-3) Lipase 56 (11.0-82.0) U/L Urine Color Urine Appearance Urine pH (5-9) Ur Specific [place] (1.010-1.030) Urine Protein (Negative) Urine Ketones (Negative) Urine Blood (Negative) Urine Nitrate (Negative) Urine Bilirubin (Negative) Urine Urobilinogen (Negative) Ur Leukocyte Esterase (Negative) Urine Glucose (Negative) 11/20/17 Range/Units 10:40 WBC (3.5-10.8) 10^3/ul RBC (4.0-5.4) 10^6/ul Hgb (14.0-18.0) g/dl Hct (42-52) % MCV (80-94) fL MCH (27-31) pg MCHC (31-36) g/dl RDW (10.5-15) % Plt Count (150-450) 10^3/ul MPV (7.4-10.4) um3 Neut % (Auto) (38-83) % Lymph % (Auto) (25-47) % Hale % (Auto) (0-7) % Eos % (Auto) (0-6) % Baso % (Auto) (0-2) % Absolute Neuts (auto) (1.5-7.7) 10^3/ul Absolute Lymphs (auto) (1.0-4.8) 10^3/ul Absolute Monos (auto) (0-0.8) 10^3/ul Absolute Eos (auto) (0-0.6) 10^3/ul Absolute Basos (auto) (0-0.2) 10^3/ul Absolute Nucleated RBC 10^3/ul Nucleated RBC % Sodium (139-145) mmol/L Potassium (3.5-5.0) mmol/L Chloride (101-111) mmol/L Carbon Dioxide (22-32) mmol/L Anion Gap (2-11) mmol/L BUN (6-24) mg/dL Creatinine (0.67-1.17) mg/dL Est GFR ( Amer) (>60) Est GFR (Non-Af Amer) (>60) BUN/Creatinine Ratio (8-20) Glucose (70-100) mg/dL Lactic Acid (0.5-2.0) mmol/L Calcium (8.6-10.3) mg/dL Total Bilirubin (0.2-1.0) mg/dL AST (13-39) U/L ALT (7-52) U/L Alkaline Phosphatase (34-104) U/L C-Reactive Protein (< 5.00) mg/L Total Protein (6.4-8.9) g/dL Albumin (3.2-5.2) g/dL Globulin (2-4) g/dL Albumin/Globulin Ratio (1-3) Lipase (11.0-82.0) U/L Urine Color Yellow Urine Appearance Clear Urine pH 8.0 (5-9) Ur Specific [place] 1.016 (1.010-1.030) Urine Protein Negative (Negative) Urine Ketones Negative (Negative) Urine Blood Negative (Negative) Urine Nitrate Negative (Negative) Urine Bilirubin Negative (Negative) Urine Urobilinogen Negative (Negative) Ur Leukocyte Esterase Negative (Negative) Urine Glucose Negative (Negative) Result Diagrams: 11/20/17 09:04 11/20/17 09:04 Lab Statement: Any lab studies that have been ordered have been reviewed, and results considered in the medical decision making process. - CT Abdomen/Pelvis CT Interpretation: No Acute Changes CT Interpretation Completed By: Radiologist - 1. NO EVIDENCE FOR ACUTE FINDING OR CAUSE FOR THE PATIENT'S ABDOMINAL PAIN IS SEEN. 2. STATUS POST APPENDECTOMY. ED physician has reviewed this result. Re-Evaluation - Re-Evaluation First Eval Re-Evaluation Time: 10:39 Change: Improved - The pt states his abd pain has decreased but he still feels week. Second Eval Re-Evaluation Time: 11:16 Change: Improved Comment: The pt states he is currently feeling improved. Abdominal Pain Fem Course/Dx - Course Course Of Treatment: Patient with left-sided abdominal pain and increased stool production without definite diarrhea. Abdominal labs are unrevealing aside from a mildly elevated white blood cell count. CRP is not elevated. Abdominal CT shows no acute inflammatory etiology. Urinalysis is negative for blood, etc. Treated here were relieved. Likely gastroenteritis versus gastritis. Treat symptomatically. Follow-up primary care physician. - Diagnoses Differential Diagnosis/HQI/PQRI: Other - Acute pancreatitis, acute diverticulitis, acute gastritis, small bowel obstruction Provider Diagnoses: Left sided abdominal pain of unknown cause, Gastritis Discharge - Sign-Out/Discharge Documenting (check all that apply): Discharge/Admit/Transfer - Discharge - Discharge Plan Condition: Good Disposition: HOME Prescriptions: Famotidine TAB* [Pepcid 20 MG TAB*] 20 mg PO BID #10 tab Hyoscyamine Sulfate [Levsin] 0.125 mg PO QID PRN #30 tablet PRN Reason: abdominal cramping Pantoprazole TAB (NF) [Protonix TAB (NF)] 40 mg PO DAILY #30 tab Sucralfate [Carafate] 1 gm PO QID #40 tablet Patient Education Materials: Acute Abdominal Pain (ED) Forms: *Work Release Referrals: Gerson Oh MD [Primary Care Provider] - Additional Instructions: Call your doctor today to schedule follow-up. [place] diet, drink plenty of fluids. Avoid caffeine, alcohol and spicy foods. Return if worse, fever, new symptoms or other concerns as discussed. - Billing Disposition and Condition Condition: GOOD Disposition: Home The documentation as recorded by the Cliff pavon Stephanie accurately reflects the service I personally performed and the decisions made by me, Rajinder Almazan MD.
== END 2017-11-20 11:21 | disposition home or self-care (01) ==
LOC: ED 08:52
DX: R10.32 Left lower quadrant pain (principal); R10.12 Left upper quadrant pain; K29.70 Gastritis, unspecified, without bleeding; Z90.89 Acquired absence of other organs
CPT/HCPCS: 36415; 74177; 80053; 81003; 83605; 83690; 85025; 86140; 96361; 96374; 96375; 99283; A9270-GY; J1200; J1885; J2765; Q9967

== ENCOUNTER 2018-01-29 10:19 | Emergency (ER) | payer BC ==
[2018-01-29 10:38] VITALS: BP 127/76
--- NOTE | 2018-01-29 11:06 | UC ---
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---no chest pain, turning the AC on the buses does help-- patient denies chest pain and concern resolves when he is done cleaning in a confined area - History of Current Complaint Chief Complaint: UCRespiratory Stated Complaint: SOB AND SWEATING Time Seen by Provider: 01/29/18 10:57 Hx Obtained From: Patient Onset/Duration: Sudden Onset, Lasting Minutes Pain Intensity: 0 Pain Scale Used: 0-10 Numeric Aggravating Factors: Other - hot enclosed spaces Alleviating Factors: Nothing Associated Signs And Symptoms: Positive: Negative - Allergies/Home Medications Allergies/Adverse Reactions: Allergies Allergy/AdvReac Type Severity Reaction Status Date / Time No Known Allergies Allergy Verified 01/29/18 10:38 PMH/Surg Hx/FS Hx/Imm Hx Previously Healthy: Yes Other History Of: Negative For: Anticoagulant Therapy - Surgical History Surgical History: Yes Surgery Procedure, Year, and Place: appendecomy 2012 - Family History Known Family History: Positive: Diabetes Negative: Cardiac Disease, Hypertension - Social History Occupation: Employed Full-time Lives: With Family Alcohol Use: Occasionally Substance Use Type: None Smoking Status (MU): Never Smoked Tobacco Have You Smoked in the Last Year: No - Immunization History Most Recent Influenza Vaccination: unknown Most Recent Tetanus Shot: unknown Most Recent Pneumonia Vaccination: unknown Review of Systems Constitutional: Negative Skin: Negative Eyes: Negative ENT: Negative Respiratory: Shortness Of Breath - when in hot enclosed areas Cardiovascular: Negative Gastrointestinal: Negative Genitourinary: Negative Motor: Negative Neurovascular: Negative Musculoskeletal: Negative Neurological: Negative Psychological: Negative Is Patient Immunocompromised?: No All Other Systems Reviewed And Are Negative: Yes Physical Exam Triage Information Reviewed: Yes Appearance: Well-Appearing, No Pain Distress, Well-Nourished Vital Signs: Initial Vital Signs Temp 97 F 01/29/18 10:35 Pulse 76 01/29/18 10:35 Resp 16 01/29/18 10:35 BP 127/76 01/29/18 10:35 Pulse Ox 98 01/29/18 10:35 Vital Signs Reviewed: Yes Eye Exam: Normal Eyes: Positive: Conjunctiva Clear ENT Exam: Normal ENT: Positive: Normal ENT inspection, Hearing grossly normal. Negative: Trismus , Muffled voice, Hoarse voice Dental Exam: Normal Neck exam: Normal Neck: Positive: Supple, Nontender Respiratory Exam: Normal Respiratory: Positive: Chest non-tender, Lungs clear, Normal breath sounds, No respiratory distress, No accessory muscle use Cardiovascular Exam: Normal Cardiovascular: Positive: RRR, No Murmur, Pulses Normal, Brisk Capillary Refill Musculoskeletal Exam: Normal Musculoskeletal: Positive: Strength Intact, ROM Intact, No Edema Neurological Exam: Normal Neurological: Positive: Alert, Muscle Tone Normal Psychological Exam: Normal Skin Exam: Normal UC Diagnostic Evaluation - Laboratory O2 Sat by Pulse Oximetry: 98 Respiratory Course/Dx - Course Course Of Treatment: increase fluid intake , try an inhaler use the AC, follow with pcp - Differential Dx/Diagnosis Provider Diagnoses: fatigue, dehydration Discharge - Sign-Out/Discharge Documenting (check all that apply): Patient Departure - Discharge Plan Condition: Stable Disposition: HOME Prescriptions: Albuterol HFA INHALER* [Ventolin HFA Inhaler*] 2 puff INH Q4H PRN #1 mdi PRN Reason: sob Patient Education Materials: Dehydration (ED), How to Use a Metered-Dose Inhaler (ED) Referrals: Gerson Oh MD [Primary Care Provider] - 1 Week - Billing Disposition and Condition Condition: STABLE Disposition: Home
[2018-01-29] MEDS ORDERED: Albuterol HFA INHALER* 8 gm MDI INH ONE (11:31)
== END 2018-01-29 11:40 | disposition home or self-care (01) ==
LOC: UCEAST 10:19
DX: R53.83 Other fatigue (principal); E86.0 Dehydration
CPT/HCPCS: 81003; 99212; A9270-GY; G0463

== ENCOUNTER 2019-08-03 11:43 | Emergency (ER) | payer BC ==
[2019-08-03] MEDS ORDERED: Albuterol/Ipratropium NEB.SOL* Albuterol 2.5 MG/Ipratropium 0.5 MG 3 ML INH ONE (12:26)
[2019-08-03] MEDS ORDERED: Albuterol HFA INHALER* 8 gm MDI INH ONE (12:27)
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
[2019-08-03 13:02] LABS: Albumin 4.4 g/dL (3.2-5.2); Calcium 9.2 mg/dL (8.6-10.3); Potassium 4.2 mmol/L (3.5-5.0); Total Bilirubin 0.5 mg/dL (0.2-1.0)
[2019-08-03 13:08] LABS: Albumin/Globulin Ratio 1.8 (1-3); BUN/Creatinine Ratio 14.8 (8-20); EGFR African American 121.4 (>60); EGFR Non-African American 100.4 (>60); Globulin 2.5 g/dL (2-4); Total Protein 6.9 g/dL (6.4-8.9)
[2019-08-03] MEDS ORDERED: Albuterol 2.5 MG/3 ML NEB.SOL* (0.083%) INH ONE (13:13)
[2019-08-03 13:58] VITALS: BP 140/77
== END 2019-08-03 13:58 | disposition home or self-care (01) ==
LOC: ED 11:43
DX: T65.91XA Toxic effect of unspecified substance, accidental (unintentional), initial encounter (principal); R04.2 Hemoptysis; R07.9 Chest pain, unspecified; H53.8 Other visual disturbances; Y92.9 Unspecified place or not applicable
CPT/HCPCS: 36415; 71046; 80053; 82375; 83690; 99282; A9270-GY